=== PATIENT | male | born 1990 | race African-American/Black ===

== ENCOUNTER 2020-03-02 12:02 | Emergency (ER) | payer OTHER ==
[~2020-03-02] VITALS: Ht 172.7 cm; Wt 66.0 kg
[2020-03-02 12:56] VITALS: BP 105/57
[2020-03-02] MEDS ORDERED: LIDOCAINE HCL/PF 1% 10 MG/ML 5ML VIAL IJ ONE (13:00)
[2020-03-02] MEDS ORDERED: BACITRACIN ZINC OINT UDPKT TOP ONE (13:00)
[2020-03-02] MEDS ORDERED: IBUPROFEN 600MG TABLET PO ONE (13:00)
== END 2020-03-02 14:15 | disposition home or self-care (01) ==
LOC: ER 12:02
DX: S51.012A Laceration without foreign body of left elbow, initial encounter (principal); W25.XXXA Contact with sharp glass, initial encounter; Y93.89 Activity, other specified; Y92.018 Other place in single-family (private) house as the place of occurrence of the external cause
CPT/HCPCS: 12002; 73070; 99283; J3490